=== PATIENT | male | born 1980 | race Caucasian/White ===

== ENCOUNTER 2016-05-03 10:35 | Emergency (ER) | payer OTHER ==
[~2016-05-03] VITALS: Ht 188 cm; Wt 120.0 kg
[2016-05-03 11:07] VITALS: BP 159/102; PULSE 89; RESP 17; TEMP 98.6; O2SAT 98
[2016-05-03] MEDS ORDERED: OMEP20TA PO (11:56)
[2016-05-03] MEDS ORDERED: FLUO20CA4 PO (11:56)
[2016-05-03] MEDS ORDERED: METF1000 PO (11:56)
[2016-05-03] MEDS ORDERED: PRAZ1CAP PO (11:56)
[2016-05-03] MEDS ORDERED: VENL37.5 PO (11:56)
[2016-05-03] MEDS ORDERED: MIRTA15 PO (11:56)
--- NOTE | 2016-05-03 12:04 | PD ---
HPI . acute on chronic back pain Chief Complaint: Back/ Neck Pain or Injury Time Seen by Provider: 12:04 Travel History International Travel<30 days: No Contact w/Intl Traveler<30days: No Traveled to known affect area: No History of Present Illness HPI 36 year old male with history of chronic back pain with injury back in 2008 who is following with the [facility] here with complaints of acute back pain. Patient says he frequently wakes up in the morning with back pain and today happens to be one of those days. He tells me that his primary care provider does not believe in pain medicines and tells him that he just has to deal with his issues. He is tried physical therapy in the past without much relief. He is here to see what we can do for him today. His pain is 10/10. There is no radiation and is localized to the lower back around L4 to S1. He denies any bowel or bladder dysfunction. He denies any saddle anesthesia. He is ambulatory. He denies any injury. He has no other complaints. PFSH Past Medical History Diabetes: Yes Patient Takes Glucophage: Yes Tetanus Vaccination: < 5 Years Influenza Vaccination: Yes Past Surgical History Cholecystectomy: Yes Social History Alcohol Use: Yes (Rare, 1-2 times a year) Tobacco Use: No Substance Use: No Allergies-Medications (Allergen,Severity, Reaction): Coded Allergies: Penicillin (Verified Allergy, Severe, Anaphylaxis, 05/03/16) Uncoded Allergies: CAPSAISIN CREAM (Allergy, Intermediate, RASH, 05/03/16) Reported Meds & Prescriptions Reported Meds & Active Scripts Active Reported Effexor (Venlafaxine HCl) 37.5 Mg Tab 37.5 Mg PO Q12H Fluoxetine (Fluoxetine HCl) 20 Mg Cap 20 Mg PO DAILY Mirtazapine 15 Mg Tab 15 Mg PO HS Omeprazole 20 Mg Tab 20 Mg PO BID Prazosin (Prazosin HCl) 1 Mg Cap 1 Mg PO HS Metformin (Metformin HCl) 1,000 Mg Tab 1,000 Mg PO BIDPC With meals Review of Systems General / Constitutional: No: Fever Eyes: No: Visual changes HENT: No: Headaches Cardiovascular: No: Chest Pain or Discomfort Respiratory: No: Shortness of Breath Gastrointestinal: No: Abdominal Pain Genitourinary: No: Dysuria Musculoskeletal: Positive: Pain (back pain) Skin: No Rash Neurologic: No: Weakness Psychiatric: No: Depression Endocrine: No: Polydipsia Hematologic/Lymphatic: No: Easy Bruising Physical Exam Narrative GENERAL: AAO x 3, no acute distress, Well-nourished, well-developed patient. comfortable in bed SKIN: Warm and dry. No visible rashes or bruising. HEAD: Normocephalic and atraumatic. EYES: No scleral icterus. No injection or drainage. ENT: No nasal drainage noted. Mucous membranes pink. Airway patent. NECK: Supple, trachea midline. No JVD. CARDIOVASCULAR: Regular rate and rhythm without murmurs, gallops, or rubs. RESPIRATORY: Breath sounds equal bilaterally. No accessory muscle use. No rhonchi or rales. GASTROINTESTINAL: Abdomen soft, non-tender, nondistended. EXTREMITIES: No cyanosis or edema. BACK: Nontender without obvious deformity. No CVA tenderness. Negative straight leg raise. Hip, knees and foot joint all normal. No spinal tenderness. No paraspinal muscle tenderness. PSYCH: AAO x 3, normal affect. Data Data Last Documented VS Vital Signs Date Time Temp Pulse Resp B/P Pulse Ox O2 Delivery O2 Flow Rate FiO2 05/03/16 11:07 98.6 89 17 159/102 98 Orders Ketorolac Inj (Toradol Inj) (05/03/16 12:15) MDM Medical Decision Making Medical Screen Exam Complete: Yes Emergency Medical Condition: Yes Medical Record Reviewed: Yes (no prior) Differential Diagnosis acute on chronic back pain, sciatica, spinal stenosis Narrative Course 36 year old male with history of chronic back pain with injury back in 2008 who is following with the [facility] here with complaints of acute back pain. Patient says he frequently wakes up in the morning with back pain and today happens to be one of those days. He tells me that his primary care provider does not believe in pain medicines and tells him that he just has to deal with his issues. He is tried physical therapy in the past without much relief. He is here to see what we can do for him today. His pain is 10/10. There is no radiation and is localized to the lower back around L4 to S1. He denies any bowel or bladder dysfunction. He denies any saddle anesthesia. He is ambulatory. He denies any injury. He has no other complaints. Patient seen and examined. There are no acute findings on his examination. He has no evidence of cauda equina or acute injury. Discussed with him that he will need to follow-up with his primary care provider for further treatment and workup. I have provided him with Toradol for pain relief today. I've advised him that he can continue to use [id number] Tylenol or ibuprofen as needed for pain. Patient verbalized understanding of instructions, questions were answered, and thanked me for their care. I advised them if their condition worsens, please return to the nearest emergency room for further care. Diagnosis Primary Impression: Lumbago Qualified Code: M54.5 - Acute low back pain without sciatica, unspecified back pain laterality Patient Instructions: Back Pain (ED), General Instructions Additional Instructions: Please return to emergency department if your symptoms return or worsen. Follow up with your primary care provider. Take medications as prescribed. As we discussed, you will need to follow-up with her primary care provider for referral to physical therapy or further workup by a license and permit specialist. You can take ibuprofen or Tylenol as needed for pain relief. Med/Other Pt SpecificInfo: No Change to Meds Disposition: 01 DISCHARGE HOME Condition: Stable Emi Levy May 03, 2016 12:04
[2016-05-03] MEDS ORDERED: KETOROLAC TROMETHAMINE 60 MG/2 ML (IM) VIAL IM ONE (12:15)
== END 2016-05-03 12:30 | disposition home or self-care (01) ==
LOC: PHEFT 10:35
DX: M54.5 Low back pain (principal); G89.29 Other chronic pain; E11.9 Type 2 diabetes mellitus without complications
CPT/HCPCS: 96372; 99283; J1885

== ENCOUNTER 2016-08-11 13:40 | Emergency (ER) | payer OTHER ==
[~2016-08-11] VITALS: Ht 188 cm; Wt 111.0 kg
[~2016-08-11 13:40] MED LIST: FLUO20CA4 PO; METF1000 PO; MIRTA15 PO; OMEP20TA PO; PRAZ1CAP PO; VENL37.5 PO
[2016-08-11 13:51] VITALS: BP 146/106; PULSE 100; RESP 16; TEMP 98.1; O2SAT 97
--- NOTE | 2016-08-11 14:19 | PD ---
HPI Chief Complaint: Back/ Neck Pain or Injury Time Seen by Provider: 14:00 Travel History International Travel<30 days: No Contact w/Intl Traveler<30days: No Traveled to known affect area: No History of Present Illness HPI 36-year-old male with history of chronic back pain status post discectomy in 2008 presents emergency department for evaluation of acute on chronic low back pain. He reports he has intermittent episodes where the pain "flares". He reports that the last 4 days his low back pain pain has been more severe. The pain is localized to the low back, at times radiates down to the left leg, unrelieved by tramadol, worse with movement, severity 8 out of 10. He denies fever, incontinence, saddle anesthesia, numbness/tingling/weakness in his lower extremities, abdominal pain or nausea or vomiting. PFSH Past Medical History Narrative Medical Significant for chronic back pain, PTSD, depression, anxiety, diabetes Diabetes: Yes Past Surgical History Cholecystectomy: Yes Social History Alcohol Use: Yes (Rare, 1-2 times a year) Tobacco Use: No Substance Use: No Allergies-Medications (Allergen,Severity, Reaction): Coded Allergies: Penicillin (Verified Allergy, Severe, Anaphylaxis, 08/11/16) Uncoded Allergies: CAPSAISIN CREAM (Allergy, Intermediate, RASH, 05/03/16) Reported Meds & Prescriptions Reported Meds & Active Scripts Active Reported Effexor (Venlafaxine HCl) 37.5 Mg Tab 37.5 Mg PO Q12H Fluoxetine (Fluoxetine HCl) 20 Mg Cap 20 Mg PO DAILY Mirtazapine 15 Mg Tab 15 Mg PO HS Omeprazole 20 Mg Tab 20 Mg PO BID Prazosin (Prazosin HCl) 1 Mg Cap 1 Mg PO HS Metformin (Metformin HCl) 1,000 Mg Tab 1,000 Mg PO BIDPC With meals Review of Systems Except as stated in HPI: all other systems reviewed are Neg General / Constitutional: No: Fever Musculoskeletal: Positive: Other (LOW BACK PAIN) Neurologic: No: Weakness, Focal Abnormalities, Coordination Problem, Ataxia, Paresthesia, Incontinence, Sensory Disturbance, Other Physical Exam Narrative GENERAL: [Alert, well-appearing male in no acute distress.] SKIN: Focused skin assessment warm/dry. HEAD: Atraumatic. Normocephalic. EYES: Pupils equal and round. No scleral icterus. No injection or drainage. ENT: No nasal bleeding or discharge. Mucous membranes pink and moist. NECK: Trachea midline. No JVD. CARDIOVASCULAR: Regular rate and rhythm. No murmur appreciated. RESPIRATORY: No accessory muscle use. Clear to auscultation. Breath sounds equal bilaterally. GASTROINTESTINAL: Abdomen soft, non-tender, nondistended. Hepatic and splenic margins not palpable. MUSCULOSKELETAL: No obvious deformities. No clubbing. No cyanosis. No edema. NEUROLOGICAL: Awake and alert. No obvious cranial nerve deficits. Motor grossly within normal limits. Normal speech. BACK: No CVA tenderness. No rash. No point tenderness on palpation of the spine. No obvious deformity. Negative straight leg raise. 2+ DTRs. 5 out of 5 strength in lower extremities. Normal dorsiflex and plantar flexion PSYCHIATRIC: Appropriate mood and affect; insight and judgment normal. Data Data Last Documented VS Vital Signs Date Time Temp Pulse Resp B/P Pulse Ox O2 Delivery O2 Flow Rate FiO2 08/11/16 13:51 98.1 100 16 146/106 97 MDM Medical Decision Making Medical Screen Exam Complete: Yes Emergency Medical Condition: Yes Differential Diagnosis Acute on chronic back pain, sciatica, spinal stenosis, herniated disc Narrative Course 36-year-old male presents emergency department for evaluation acute on chronic back pain. Currently on tramadol for low back pain. Patient reports he has appointment with pain management for the following week. Patient had MRI done which reveal mild to moderate degenerative disc disease without evidence of significant central canal or neural foraminal stenosis. Patient was seen and assessed his physical exam reveal no spinal tenderness, negative straight leg raise, no saddle anesthesia, normal strength and sensation lower extremities. Patient will be given a shot of Toradol and Norflex and discharged home instructed to follow-up and his pain management appointment next week. Patient agrees to this plan Diagnosis Primary Impression: Low back pain Qualified Code: M54.5 - Low back pain, unspecified back pain laterality, unspecified chronicity, with sciatica presence unspecified Referrals: Pain Management Additional Instructions: Take the medications as prescribed. Keep your follow-up appointment with pain management for next week. Scripts Methocarbamol (Robaxin)500 Mg [id number] Mg PO TID PRN (MUSCLE SPASM) #12 TAB Prov:Romina Cleaning 08/11/16 Ibuprofen 800 Mg [id number] Mg PO Q8H PRN (Pain/Inflammation) #30 TAB Prov:Romina Cleaning 08/11/16 Disposition: 01 DISCHARGE HOME Condition: Stable Romina Cleaning Aug 11, 2016 14:19
[2016-08-11] MEDS ORDERED: VENL150C39 PO (14:21)
[2016-08-11] MEDS ORDERED: AMIT25TA9 PO (14:21)
[2016-08-11] MEDS ORDERED: TRAM50TA PO (14:21)
[2016-08-11] MEDS ORDERED: TRAZ100T6 PO (14:21)
[2016-08-11] MEDS ORDERED: PRAZ2CAP PO (14:21)
[2016-08-11] MEDS ORDERED: ROBA500T PO (14:30)
[2016-08-11] MEDS ORDERED: IBUP800T23 PO (14:30)
[2016-08-11] MEDS ORDERED: KETOROLAC TROMETHAMINE 60 MG/2 ML (IM) VIAL IM ONE (14:45)
[2016-08-11] MEDS ORDERED: ORPHENADRINE INJ 60 MG/2 ML AMP IM ONE (14:45)
== END 2016-08-11 14:45 | disposition home or self-care (01) ==
LOC: PHEFT 13:40
DX: M54.5 Low back pain (principal); G89.29 Other chronic pain; E11.9 Type 2 diabetes mellitus without complications
CPT/HCPCS: 96372; 99284; J1885; J2360

== ENCOUNTER 2017-06-17 16:21 | Emergency (ER) | payer OTHER ==
[~2017-06-17] VITALS: Ht 188 cm; Wt 120.0 kg
[~2017-06-17 16:21] MED LIST changes: +AMIT25TA9 PO; +DIAZ2 PO; -FLUO20CA4 PO; +HYDR2TAB PO; -MIRTA15 PO; -OMEP20TA PO; +OMEP20TA93 PO; +OXYC-396 PO; -PRAZ1CAP PO; +PRAZ2CAP PO; +TAMS0.4C4 PO; +TRAZ100T10 PO; -VENL37.5 PO; +VENL75TA PO; +ZITHTAB PO
[2017-06-17 16:41] VITALS: BP 150/82; PULSE 84; RESP 16; TEMP 98.7; O2SAT 98
[2017-06-17] MEDS ORDERED: HYDR-3516 PO (17:51)
[2017-06-17] MEDS ORDERED: ACETAMINOPHEN/HYDROcodone 325 MG/5 MG TAB PO ONE (18:00)
--- NOTE | 2017-06-17 18:34 | PD ---
HPI Chief Complaint: Oral / Dental Pain or Problem Time Seen by Provider: 17:41 Travel History International Travel<30 days: No Contact w/Intl Traveler<30days: No Traveled to known affect area: No History of Present Illness HPI 37-year-old male presents after 5 lower anterior jaw teeth extractions earlier this morning patient had the #10, 9, 8, 7, and 6 teeth removed this morning. Patient was given ibuprofen which he has been taking regularly as well as Tylenol without pain relief. Patient attempted to go back to the dental office for a stronger pain medicine, but arrived after they had closed. Patient is also on clindamycin as an antibiotic. He has no significant bleeding. He has swelling to the lower anterior jaw. Patient is allergic to penicillin and capsaicin. PFSH Past Medical History Anxiety: Yes Depression: Yes Diabetes: Yes Patient Takes Glucophage: Yes Diminished Hearing: No GERD: Yes Musculoskeletal: Yes (TMJ) Neurologic: Yes (TBI) Psychiatric: Yes (PTSD) Immunizations Current: Yes Past Surgical History Cholecystectomy: Yes Neurologic Surgery: Yes (BACK SURGERY X 2 ) Other Surgery: Yes (Spleen repair ) Social History Alcohol Use: Yes (Rare, 1-2 times a year) Tobacco Use: No (QUIT 02/2008) Substance Use: No Allergies-Medications (Allergen,Severity, Reaction): Coded Allergies: penicillin G (Unverified Allergy, Severe, Anaphylaxis, 06/17/17) Uncoded Allergies: CAPSAISIN CREAM (Allergy, Intermediate, RASH, 05/03/16) Reported Meds & Prescriptions Reported Meds & Active Scripts Active Hydrocodone-Acetaminophen 5-325 mg Tab 1 Tab PO Q4H PRN Zithromax Z-Rylan (Azithromycin) 250 Mg Dspk 250 Mg PO DIRECTED 500 MG (2 tabs) day 1, then 1 tab days 2-5. Reported Oxycodone (Oxycodone HCl) 20 Mg Tab 20 Mg PO Q12HR PRN Hydromorphone (Hydromorphone HCl) 2 Mg Tab 2 Mg PO Q3HR PRN Tamsulosin (Tamsulosin HCl) 0.4 Mg Cap 0.4 Mg PO DAILY Valium (Diazepam) 2 Mg Tab 2 Mg PO Q8HR PRN Effexor (Venlafaxine HCl) 75 Mg Tab 75 Mg PO DAILY Amitriptyline (Amitriptyline HCl) 25 Mg Tab 25 Mg PO HS Trazodone (Trazodone HCl) 100 Mg Tablet 100 Mg PO HS Prazosin (Prazosin HCl) 2 Mg Cap 2 Mg PO BID Omeprazole 20 Mg Tab 20 Mg PO BID Metformin (Metformin HCl) 1,000 Mg Tab 1,000 Mg PO BIDPC With meals Review of Systems Except as stated in HPI: all other systems reviewed are Neg General / Constitutional: No: Fever Eyes: No: Visual changes HENT: Positive: Dental Difficulties, No: Headaches, Vertigo, Lightheadedness, Sore Throat, Rhinitis, Rhinorrhea, Congestion, Nosebleed, Neck Stiffness, Neck Pain, Masses, Gingival Bleeding, Ear Discharge, Earache, Other Cardiovascular: No: Chest Pain or Discomfort Respiratory: No: Shortness of Breath Gastrointestinal: No: Abdominal Pain Genitourinary: No: Dysuria Musculoskeletal: No: Pain Skin: No Rash Neurologic: No: Weakness Psychiatric: No: Depression Endocrine: No: Polydipsia Hematologic/Lymphatic: No: Easy Bruising Physical Exam Narrative GENERAL: Patient appears in moderate distress. SKIN: Warm and dry. Normal color. Normal turgor. HEAD: Atraumatic. Normocephalic. EYES: Pupils equal and round. No scleral icterus. No injection or drainage. ENT: No nasal bleeding or discharge. Mucous membranes pink and moist. Patient has sutured dental removal areas to the lower anterior jaw with localized swelling, but no signs of infection. This area is tender with palpation. Pharynx is clear. Airways patent NECK: Trachea midline. Supple and nontender. CARDIOVASCULAR: Regular rate and rhythm. RESPIRATORY: No accessory muscle use. Clear to auscultation. Breath sounds equal bilaterally. MUSCULOSKELETAL: Extremities without clubbing, cyanosis, or edema. No obvious deformities. NEUROLOGICAL: Awake and alert. No obvious cranial nerve deficits. Motor grossly within normal limits. Five out of 5 muscle strength in the arms and legs. Normal speech. PSYCHIATRIC: Appropriate mood and affect; insight and judgment normal. Data Data Last Documented VS Vital Signs Date Time Temp Pulse Resp B/P (MAP) Pulse Ox O2 Delivery O2 Flow Rate FiO2 06/17/17 16:41 98.7 84 16 150/82 (104) 98 Orders Orders Acetamin-Hydrocod 325-5 Mg ([place] 5-325 (06/17/17 18:00) [facility] Medical Decision Making Medical Screen Exam Complete: Yes Emergency Medical Condition: Yes Differential Diagnosis Recent dental extraction. Dental pain. Intractable pain Narrative Course Patient is medically stable at time of exam. Patient given hydrocodone/acetaminophen 5/325 p.o. now Patient is given a prescription for Lortab 5/325 one every 6 hours as needed # 12. Patient to continue ice and ibuprofen as previously prescribed. Patient to continue the antibiotics as previously prescribed Patient to follow-up with his dentist. Diagnosis Primary Impression: Pain, dental Referrals: Dentist Patient Instructions: General Instructions, Narcotic given in the ED Additional Instructions: Patient given hydrocodone/acetaminophen 5/325 p.o. now Patient is given a prescription for Lortab 5/325 one every 6 hours as needed # 12. Patient to continue ice and ibuprofen as previously prescribed. Patient to continue the antibiotics as previously prescribed Patient to follow-up with his dentist. Med/Other Pt SpecificInfo: Prescription(s) given Scripts Hydrocodone-Acetaminophen (Hydrocodone-Acetaminophen) 5-325 mg Tab 1 TAB PO Q4H Y for PAIN, #12 TAB 0 Refills Prov: Balwinder Mathews MD 06/17/17 Disposition: 01 DISCHARGE HOME Condition: Stable Gentry Keating Jun 17, 2017 18:33
== END 2017-06-17 19:12 | disposition home or self-care (01) ==
LOC: NEPD 16:21
DX: K08.89 Other specified disorders of teeth and supporting structures (principal); E11.9 Type 2 diabetes mellitus without complications; K21.9 Gastro-esophageal reflux disease without esophagitis; F32.9 Major depressive disorder, single episode, unspecified; F43.10 Post-traumatic stress disorder, unspecified; Z79.84 Long term (current) use of oral hypoglycemic drugs; Z87.891 Personal history of nicotine dependence
CPT/HCPCS: 99283